=== PATIENT | female | born 1980 | race Caucasian/White ===

== ENCOUNTER 2020-04-10 08:47 | Inpatient (IN) | payer OTHER ==
[~2020-04-10] VITALS: Ht 170.1 cm; Wt 117.7 kg
[2020-04-10 08:55] VITALS: BP 136/92
[2020-04-10 09:33] LABS: BASO # 0.1 10*3/uL (0.0-0.1); BASO % 0.6 % (0.0-1.0); EOS # 0.2 10*3/uL (0.0-0.4); HEMATOCRIT 47.3 % (37.0-47.0); LYMPH # 2.2 10*3/uL (1.3-4.4); LYMPH % 19.9 % (27.0-41.0); MEAN CELL VOLUME 88.7 fl (81.0-99.0); MEAN CORPUSCULAR HGB 29.1 pg (27.0-31.0); MEAN CORPUSCULAR HGB CONC 32.8 g/dl (33.0-37.0); MEAN PLATELET VOLUME 10.7 fl (9.6-12.3); MONO # 0.6 10*3/uL (0.1-1.0); MONO % 5.4 % (3.0-9.0); NEUT # 7.8 10*3/uL (2.3-7.9); NEUT % 71.8 % (47.0-73.0); PLATELET COUNT AUTOMATED 441 10*3/uL (130-400); RED BLOOD COUNT 5.33 10*6/uL (4.10-5.10); WHITE BLOOD COUNT 10.9 10*3/uL (4.8-10.8)
[2020-04-10 09:35] LABS: BILIRUBIN NEGATIVE; CLARITY TURBID (CLEAR); COLOR YELLOW (YELLOW); GLUCOSE NEGATIVE; KETONE NEGATIVE
[2020-04-10 09:36] LABS: BLOOD TRACE-LYSED (NEGATIVE); LEUKO ESTERASE TRACE (NEGATIVE); NITRITE NEGATIVE (NEGATIVE); SPECIFIC GRAVITY > 1.030 (1.001-1.030); UROBILINOGEN 0.2 E.U./dl (0.0-1.0)
[2020-04-10 09:47] LABS: EPITHELIAL CELLS 21-30
[2020-04-10 09:48] LABS: ALBUMIN 4.2 gm/dl (3.1-4.5); CREATININE 1.69 mg/dL (0.55-1.02); POTASSIUM 3.3 mmol/L (3.5-5.1); TOTAL PROTEIN 8.6 gm/dL (6.4-8.2)
[2020-04-10 09:48] LABS: BACTERIA 3+; MUCOUS 1+
--- NOTE | 2020-04-10 10:05 | NUR ---
PT WITH MILD PAIN RELIEF FROM MEDS,DR. RIP ATKINS MADE AWARE.
[2020-04-10 10:30] VITALS: BP 123/68
[2020-04-10] MEDS ORDERED: DOSOQUIN TABLE1 EACH PO (10:33)
[2020-04-10] MEDS ORDERED: LOVASTATIN20 MG PO (10:34)
[2020-04-10] MEDS ORDERED: METHOCARBAMOL750 M1 PO (10:34)
[2020-04-10] MEDS ORDERED: SERTRALINE HYD100 MG PO (10:35)
[2020-04-10] MEDS ORDERED: AMITRIPTYLINE100 M1 PO (10:35)
[2020-04-10] MEDS ORDERED: BUPROPION XL300 MG PO (10:35)
[2020-04-10] MEDS ORDERED: HYDROXYZINE PAM25 M1 PO (10:36)
[2020-04-10] MEDS ORDERED: FOLINIC-PLUS C1 EACH PO (10:36)
--- NOTE | 2020-04-10 10:51 | NUR ---
MED REC UPDATED.
[2020-04-10 11:20] VITALS: BP 117/92
--- NOTE | 2020-04-10 11:20 | NUR ---
Time: 1119 A 39 year old FEMALE admitted to under services of MERVIN HOLLIS DO. Pt. arrived via wheel chair from ER. Chief complaint: ABDOMINAL PAIN, NAUSEA, AND VOMITING SINCE SUNDAY NIGHT. ROSHAN DICKINSON
[2020-04-10 12:00] VITALS: BP 125/76
--- NOTE | 2020-04-10 14:17 | NUR ---
PATIENT MEDICATED WITH IV ZOFRAN AT THIS TIME PER ORDER FOR COMPLAINTS OF NAUSEA. WILL MONITOR FOR EFFECTIVENESS.
--- NOTE | 2020-04-10 15:28 | NUR ---
RESIDENT NOTIFIED OF WOUND TO RT UPPER CHEST. SAID HE WOULD BE UP TO SEE IT AND PUT ORDERS IN. INFORMED HIM THAT THE PTs [employer]AMOND SIZER AND SORTER WHO REMOVED THE MOLE ORDERED HER TO LEAVE IT OPEN TO AIR.
--- NOTE | 2020-04-10 15:59 | NUR ---
COMPLAINTS OF HEARTBURN STATES NOTHING HELPED IT. MEDS THAT HAVE BEEN GIVEN TODAY HAVE HELPED ONLY THE NAUSEA. STATES SHE TRIED TUMS AT HOME WITH NO RELIEF. DENIED TRYING NEXIUM OR PRILOSEC. NOTIFIED OF PATIENT COMPLAINTS. OK TO GIVEN MAALOX EARLY. SAID HE WOULD COME TO SEE PT.
[2020-04-10 16:00] VITALS: BP 140/84
--- NOTE | 2020-04-10 17:03 | NUR ---
COMPLAINTS OF NAUSEA AT THIS TIME AND HEART BURN. STATES THE CARAFATE AND MAALOX DID NOT HELP. COUND'T FINISH HER MEAL WHICH CONSISTED OF RICE, BANANA, AND APPLESAUSE. NOTIFIED. SAID HE WOULD GET BACK TO ME.
[2020-04-10 20:00] VITALS: BP 142/85
[2020-04-11] VITALS: BP 109/66
--- NOTE | 2020-04-11 05:31 | NUR ---
PATIENT MEDICATED WITH ZOFRAN FOR COMPLAINTS OF NAUSEA AND STOMACH UPSET. WILL MONITOR FOR EFFECTIVENESS.
--- NOTE | 2020-04-11 06:06 | NUR ---
PATIENT FEELING SOME BETTER AT THIS TIME.
[2020-04-11 06:32] LABS: BASO % 0.3 % (0.0-1.0); EOS # 0.2 10*3/uL (0.0-0.4); EOS % 1.7 % (1.0-4.0); HEMATOCRIT 44.1 % (37.0-47.0); LYMPH # 1.5 10*3/uL (1.3-4.4); MEAN CELL VOLUME 91.1 fl (81.0-99.0); MEAN CORPUSCULAR HGB 28.7 pg (27.0-31.0); MEAN CORPUSCULAR HGB CONC 31.5 g/dl (33.0-37.0); MEAN PLATELET VOLUME 10.6 fl (9.6-12.3); MONO # 0.5 10*3/uL (0.1-1.0); MONO % 5.2 % (3.0-9.0); NEUT # 6.6 10*3/uL (2.3-7.9); NEUT % 75.5 % (47.0-73.0); RED BLOOD COUNT 4.84 10*6/uL (4.10-5.10); RED CELL DISTRI WIDTH 13.2 % (0-14.5); WHITE BLOOD COUNT 8.8 10*3/uL (4.8-10.8)
[2020-04-11 06:35] LABS: PLATELET COUNT AUTOMATED 308 10*3/uL (130-400)
[2020-04-11 06:41] LABS: CHLORIDE 113 mmol/L (98-107); CREATININE 1.08 mg/dL (0.55-1.02); POTASSIUM 3.8 mmol/L (3.5-5.1); SODIUM 138 mmol/L (136-145)
[2020-04-11 06:42] LABS: BUN 22 mg/dl (7-24)
[2020-04-11 08:00] VITALS: BP 144/92
--- NOTE | 2020-04-11 10:12 | NUR ---
NOTIFIED WOUND CARE ORDERS ARE STILL NEEDED FOR CHEST MOLE REMOVAL SITE. SAID HE WOULD ADD THEM IN.
--- NOTE | 2020-04-11 10:54 | NUR ---
LEFT MESSAGE FOR REGARDING NEW CONSULT. AWAITING CALL BACK.
[2020-04-11 12:00] VITALS: BP 128/83
[2020-04-11 16:00] VITALS: BP 131/75
--- NOTE | 2020-04-11 17:47 | NUR ---
CONTINUES TO COMPLAIN OF NAUSEA. SCHEDULED ZOFRAN AND MAALOX GIVEN AT THIS TIME.
[2020-04-11 20:00] VITALS: BP 98/56
--- NOTE | 2020-04-11 20:19 | NUR ---
PATIENT MEDICATED WITH A GI COCKTAIL FOR COMPLAINTS OF SEVERE STOMACH PAIN. WILL MONITOR FOR EFFECTIVENESS. CALL LIGHT IN REACH.
--- NOTE | 2020-04-11 21:15 | NUR ---
GI COCKTAIL EFFECTIVE. PATIENT FEELING BETTER AT THIS TIME.
--- NOTE | 2020-04-11 21:18 | NUR ---
PATIENT REQUESTING VISTARIL AGAIN AT THIS TIME. OK PER DR. DELUNA.
[2020-04-12] VITALS: BP 120/61
[2020-04-12 05:08] LABS: BUN 15 mg/dl (7-24); CHLORIDE 111 mmol/L (98-107); CREATININE 0.92 mg/dL (0.55-1.02); POTASSIUM 3.9 mmol/L (3.5-5.1); SODIUM 141 mmol/L (136-145)
[2020-04-12 06:04] LABS: BASO % 0.4 % (0.0-1.0); EOS # 0.1 10*3/uL (0.0-0.4); EOS % 1.6 % (1.0-4.0); HEMATOCRIT 38.9 % (37.0-47.0); LYMPH # 2.4 10*3/uL (1.3-4.4); MEAN CELL VOLUME 91.5 fl (81.0-99.0); MEAN CORPUSCULAR HGB 28.7 pg (27.0-31.0); MEAN CORPUSCULAR HGB CONC 31.4 g/dl (33.0-37.0); MEAN PLATELET VOLUME 10.8 fl (9.6-12.3); MONO # 0.4 10*3/uL (0.1-1.0); MONO % 6.2 % (3.0-9.0); NEUT # 3.8 10*3/uL (2.3-7.9); NEUT % 55.7 % (47.0-73.0); PLATELET COUNT AUTOMATED 323 10*3/uL (130-400); RED BLOOD COUNT 4.25 10*6/uL (4.10-5.10); RED CELL DISTRI WIDTH 13.2 % (0-14.5); WHITE BLOOD COUNT 6.8 10*3/uL (4.8-10.8)
[2020-04-12 08:00] VITALS: BP 123/62
--- NOTE | 2020-04-12 09:00 | NUR ---
[employer] Crewmember in to talk to patient. Patient states lives at home with alone. There are no steps in the home. Physician: nurse practitioner yolis jennings Pharmacy: [facility] Home health services: none Patient's level of ADLs: INDEPENDENT Patient has working utilities: all working DME: none Follow-up physician's appointment after d/c: will be made by hospitalist nurse director upon discharge Does patient want to access PORTAL?: no Discharge plan discussed with patient, she states she lives at home alone, she is independent in adls and ambulation, she states she lives in [place], [place] and is in this area visiting her boyfriend, she stated her boyfriend will transport her from the hospital to home. she states she will return home when discharged and denies any home needs, case management will follow. ALMA JONES
--- NOTE | 2020-04-12 11:45 | NUR ---
24 HR chart check completed.
[2020-04-12 12:00] VITALS: BP 129/89
--- NOTE | 2020-04-12 13:48 | NUR ---
SURGERY IN TO SEE PATIENT.
--- NOTE | 2020-04-12 15:00 | NUR ---
CT CALLED AND STATES TO KEEP PATIENT NPO AT THIS TIME. GIVE PATIENT CT PREP AND THEY WILL TAKE HER DOWN FOR SCAN IN ABOUT AN HOUR AND A HALF. PER PATIENT SHE HAS NOT HAD ANYTHING TO EAT TODAY AND JUST DRANK A LITTLE BIT OF WATER.
--- NOTE | 2020-04-12 15:16 | NUR ---
PATIENT DRINKING CT PREP AT THIS TIME.
--- NOTE | 2020-04-12 15:50 | NUR ---
PATIENT AWARE WE NEED A STOOL SAMPLE.
[2020-04-12 16:00] VITALS: BP 134/92
--- NOTE | 2020-04-12 16:55 | NUR ---
CT NOTIFIED PATIENT HAS ABOUT 240ML OF CT PREP LEFT AND STATES SHE CAN NOT DRINK ANYMORE OF IT OR SHE WILL THROW UP. PER CT THEY WILL DOCUMENT THIS AND SEND UP TO GET HER IN A LITTLE BIT. STILL TWO PEOPLE IN FRONT OF HER.
--- NOTE | 2020-04-12 17:17 | NUR ---
PATIENT OFF THE FLOOR AT THIS TIME FOR CT ABDOMEN/PELVIS.
--- NOTE | 2020-04-12 17:45 | NUR ---
PT BACK TO FLOOR FROM CT.
[2020-04-12 20:00] VITALS: BP 146/84
--- NOTE | 2020-04-12 20:45 | NUR ---
PATIENT'S STOOL AND C-DIFF SAMPLES WERE SENT DOWN TO LAB. PATIENT COMPLAINING OF ABDOMINAL PAIN AND STATED SHE DOES NOT WANT TO TAKE THE TYLENOL THAT IS ORDERED PRN BECAUSE "IT DOES NOT HELP". NOTIFIED DR DELUNA AND SHE PUT A ONE TIME DOSE ORDER IN FOR [employer]. WILL ADMINISTER MEDICATION.
--- NOTE | 2020-04-12 21:02 | NUR ---
NORCO GIVEN PER DR ORDERS AND PATIENT REQUEST FOR COMPLAINTS OF ABDOMINAL PAIN RATED 8/10. WILL ASSESS EFFECTIVENESS.
--- NOTE | 2020-04-12 22:00 | NUR ---
NORCO EFFECTIVE PER PATIENT. WILL CONTINUE TO MONITOR.
[2020-04-13] VITALS: BP 98/55
[2020-04-13 06:31] LABS: BASO % 0.4 % (0.0-1.0); EOS # 0.2 10*3/uL (0.0-0.4); EOS % 2.2 % (1.0-4.0); LYMPH % 28.4 % (27.0-41.0); MEAN CELL VOLUME 90.7 fl (81.0-99.0); MEAN CORPUSCULAR HGB 28.9 pg (27.0-31.0); MEAN CORPUSCULAR HGB CONC 31.8 g/dl (33.0-37.0); MEAN PLATELET VOLUME 10.6 fl (9.6-12.3); MONO # 0.3 10*3/uL (0.1-1.0); MONO % 4.9 % (3.0-9.0); NEUT # 4.4 10*3/uL (2.3-7.9); NEUT % 63.8 % (47.0-73.0); PLATELET COUNT AUTOMATED 287 10*3/uL (130-400); RED BLOOD COUNT 4.19 10*6/uL (4.10-5.10); WHITE BLOOD COUNT 6.9 10*3/uL (4.8-10.8)
[2020-04-13 07:03] LABS: BUN 13 mg/dl (7-24); CHLORIDE 106 mmol/L (98-107); CREATININE 0.83 mg/dL (0.55-1.02); SODIUM 138 mmol/L (136-145)
[2020-04-13 07:04] LABS: POTASSIUM 3.9 mmol/L (3.5-5.1)
--- NOTE | 2020-04-13 07:30 | NUR ---
TOOK OVER CARE OF PT. PT SITTING UP IN BED, ALERT ORIENTED AND PLEASANT MOOD. NO COMPLAINTS ARE VOICED AT THIS TIME. CALL LIGHT IN REACH.
[2020-04-13 08:00] VITALS: BP 116/68
--- NOTE | 2020-04-13 09:00 | NUR ---
case management visits with patient, she states she will return home when discharaged and denies any home needs, case managment will follow
--- NOTE | 2020-04-13 09:09 | NUR ---
PT GIVEN TYLENOL AND ROBAXIN AT THIS TIME FOR HEADACHE AND MUSCLE PAIN. WILL MONITOR FOR EFFECTIVENESS. CALL LIGHT IN REACH.
--- NOTE | 2020-04-13 10:09 | NUR ---
TYLENOL AND ROBAXIN EFFECTIVE.
--- NOTE | 2020-04-13 10:58 | NUR ---
PT GIVEN NORCO FOR ABDOMINAL PAIN AND DISCOMFORT. WILL MONITOR FOR EFFECTIVENESS. CALL LIGHT IN REACH.
--- NOTE | 2020-04-13 11:58 | NUR ---
PT STATES THAT NORCO IS EFFECTIVE.
[2020-04-13 12:00] VITALS: BP 128/82
--- NOTE | 2020-04-13 15:23 | NUR ---
PT GIVEN PHENERGAN FOR NAUSEA. WILL MONITOR FOR EFFECTIVENESS. CALL LIGHT IN REACH.
[2020-04-13 16:00] VITALS: BP 115/56
--- NOTE | 2020-04-13 16:23 | NUR ---
PT STATES THAT PHENERGAN IS EFFECTIVE.
--- NOTE | 2020-04-13 17:29 | NUR ---
PT GIVEN NORCO AT THIS TIME FOR C/O ABDOMINAL PAIN. WILL MONITOR FOR EFFECTIVENESS. CALL LIGHT IN REACH.
--- NOTE | 2020-04-13 19:41 | NUR ---
MEDICATED WITH PRN PHENERGAN FOR C/O NAUSEA. WILL MONITOR
[2020-04-13 20:00] VITALS: BP 134/93
--- NOTE | 2020-04-13 20:05 | NUR ---
PHENERGAN EFFECTIVE PER PATIENT
[2020-04-14] VITALS: BP 151/88
--- NOTE | 2020-04-14 00:09 | NUR ---
MEDICATED WITH PRN NORCO FOR C/O PAIN IN ABD RATED 6/10 ON A 0/10 PAIN SCALE. WILL MONITOR
--- NOTE | 2020-04-14 01:09 | NUR ---
PATIENT RESTING IN BED WITH EYES CLOSED. MEDICATION SEEMS EFFECTIVE
--- NOTE | 2020-04-14 04:01 | NUR ---
PATIENT RESTING WITH NO S/S OF DISTRESS. BED IN LOW POSITION, CALL LIGHT IN REACH
--- NOTE | 2020-04-14 04:06 | NUR ---
24 HR chart check completed.
[2020-04-14 06:23] LABS: BASO % 0.4 % (0.0-1.0); EOS # 0.1 10*3/uL (0.0-0.4); EOS % 1.6 % (1.0-4.0); HEMATOCRIT 35.6 % (37.0-47.0); LYMPH % 28.1 % (27.0-41.0); MEAN CORPUSCULAR HGB 28.6 pg (27.0-31.0); MEAN CORPUSCULAR HGB CONC 31.5 g/dl (33.0-37.0); MEAN PLATELET VOLUME 10.6 fl (9.6-12.3); MONO # 0.4 10*3/uL (0.1-1.0); MONO % 5.7 % (3.0-9.0); NEUT # 4.5 10*3/uL (2.3-7.9); NEUT % 63.8 % (47.0-73.0); PLATELET COUNT AUTOMATED 273 10*3/uL (130-400); RED BLOOD COUNT 3.91 10*6/uL (4.10-5.10); RED CELL DISTRI WIDTH 12.9 % (0-14.5)
[2020-04-14 06:40] LABS: BUN 9 mg/dl (7-24); CHLORIDE 105 mmol/L (98-107); CREATININE 0.81 mg/dL (0.55-1.02); POTASSIUM 3.2 mmol/L (3.5-5.1); SODIUM 140 mmol/L (136-145)
[2020-04-14 08:00] VITALS: BP 148/84
--- NOTE | 2020-04-14 08:40 | NUR ---
NORCO GIVEN FOR C/O ABDM. PAIN. RATES 6/10 ON PAIN SCALE. WILL MONITOR.
--- NOTE | 2020-04-14 09:00 | NUR ---
case management visits with patient, she states she will return home when discahrged and denies any home needs, case management will follow
--- NOTE | 2020-04-14 09:40 | NUR ---
SIOBHAN EFFECTIVE PER PT.
[2020-04-14 12:00] VITALS: BP 152/78
[2020-04-14 16:00] VITALS: BP 139/75
--- NOTE | 2020-04-14 17:13 | NUR ---
NORCO GIVEN FOR C/O ABDM. PAIN. RATES 6/10 ON PAIN SCALE. WILL MONITOR.
--- NOTE | 2020-04-14 18:15 | NUR ---
SIOBHAN EFFECTIVE PER PT.
--- NOTE | 2020-04-14 18:48 | NUR ---
PHENERGAN GIVEN FOR C/O NAUSEA. WILL MONITOR
--- NOTE | 2020-04-14 19:30 | NUR ---
PATIENT RESTING IN BED. VOICES NO COMPLAINTS. STATES DIARRHEA SEEMS TO BE GONE AND THAT SHE IS NOT FEELING NAUSEOUS AT THIS TIME. STILL CO ABDOMINAL PAIN BUT STATES IT HAS IMPROVED A LOT. ASSESSMENT COMPLETE. CALL LIGHT IN REACH.
[2020-04-14 20:00] VITALS: BP 111/84
--- NOTE | 2020-04-14 23:45 | NUR ---
24 HR chart check completed.
[2020-04-15] VITALS: BP 110/58
--- NOTE | 2020-04-15 06:10 | NUR ---
PRN NORCO GIVEN FOR PT COMPLAINTS OF ABDOMINAL PAIN RATING IT 6/10. CALL LIGHT WITHIN REACH, WILL MONITOR
--- NOTE | 2020-04-15 07:10 | NUR ---
NORCO EFFECTIVE PER PATIENT.
[2020-04-15 08:00] VITALS: BP 102/62
[2020-04-15] MEDS ORDERED: ZOFRAN4 MG PO (09:47)
[2020-04-15] MEDS ORDERED: CIPRO500 MG PO (09:47)
[2020-04-15] MEDS ORDERED: FLAGYL500 MG PO (09:47)
--- NOTE | 2020-04-15 11:05 | NUR ---
Discharge instructions reviewed with patient/family. Patient receptive and verbalizes understanding. Follow-up care arranged. Written instructions given to patient/family. GERONIMO SANDS
== END 2020-04-15 11:05 | disposition home or self-care (01) | DRG 720 ==
LOC: ED 08:47 → EDHOLD 10:17 → 4E 10:17
PROVIDERS: Emergency Medicine; Internal Medicine; Student in an Organized Health Care Education/Training Program; ADMIT Internal Medicine; ATTEND Internal Medicine
DX: A41.9 Sepsis, unspecified organism (principal); A08.4 Viral intestinal infection, unspecified; N17.0 Acute kidney failure with tubular necrosis; E86.0 Dehydration; E87.6 Hypokalemia; R73.9 Hyperglycemia, unspecified; F32.9 Major depressive disorder, single episode, unspecified; F41.9 Anxiety disorder, unspecified; R65.20 Severe sepsis without septic shock; G90.50 Complex regional pain syndrome I, unspecified; K76.0 Fatty (change of) liver, not elsewhere classified; M79.3 Panniculitis, unspecified; E66.01 Morbid (severe) obesity due to excess calories; Z68.41 Body mass index [BMI] 40.0-44.9, adult; Z88.0 Allergy status to penicillin; Z88.8 Allergy status to other drugs, medicaments and biological substances; Z90.49 Acquired absence of other specified parts of digestive tract; Z98.51 Tubal ligation status; Z87.891 Personal history of nicotine dependence; Z82.3 Family history of stroke; Z84.1 Family history of disorders of kidney and ureter